=== PATIENT | female | born 1955 | race Caucasian/White ===

== ENCOUNTER 2016-06-26 08:30 | Emergency (ER) | payer OTHER ==
[2016-06-26 08:39] VITALS: BP 133/91; PULSE 64; TEMP 98; BMI 33.7
--- NOTE | 2016-06-26 09:12 | PDOC ---
History of Present Illness - General Chief Complaint: Nasal Bleeding Stated Complaint: NOSE BLEEDS Time Seen by Provider: 06/26/16 08:55 History Source: Patient Exam Limitations: No Limitations - History of Present Illness Initial Comments: 06/26/16 09:16 CHIEF COMPLAINT: Left sided nasal bleeding intermittent 3 months last episode this morning HISTORY OF PRESENT ILLNESS: Patient is a 61-year-old female with a history of left-sided breast cancer with lumpectomy here today complaining of intermittent nasal bleeding left nostril 3 months patient reports he asked episode with this morning. Patient denies being on any blood thinners however does take Aleve every day for arthritis. Patient reports that she does not pinch her nose closed was never told to do this. Patient also reports that she has a very small bedroom and the heat is very high and dry patient has not used any humidification. Patient has an appointment with an ear nose and throat doctor in July. Patient denies any nasal congestion prior to episodes of nasal bleeding or any postnasal drip or cough. Patient reports this is the first unit that she has ever had this before. Timing/Duration: intermittent (for 3 months ) Severity: mild Associated Symptoms: reports: other (left sided epistaxis none presently had eariler today) Past History - Past Medical History Allergies/Adverse Reactions: Allergies Allergy/AdvReac Type Severity Reaction Status Date / Time No Known Allergies Allergy Verified 06/26/16 08:39 Home Medications: Ambulatory Orders NK [No Known Home Medication] 06/26/16 Cancer: Yes (Hx of Breast CA.) Liver Disease: Yes (hep c) Other medical history: arthritis - Psycho/Social/Smoking Cessation Hx Suicidal Ideation: No Smoking History: Never smoked Hx Alcohol Use: No Drug/Substance Use Hx: No Review of Systems - Review of Systems Able to Perform ROS?: Yes Constitutional: No: Symptoms Reported HEENTM: Yes: Other (left sided epistaxis intermittent for 3 months, last time this morning) Respiratory: No: Symptoms reported Cardiac (ROS): No: Symptoms Reported ABD/GI: No: Symptoms Reported Musculoskeletal: No: Symptoms Reported Integumentary: No: Symptoms Reported Neurological: No: Symptoms reported *Physical Exam - Vital Signs Last Vital Signs Temp Pulse Resp BP Pulse Ox 98 F 64 18 133/91 99 06/26/16 08:35 06/26/16 08:35 06/26/16 08:35 06/26/16 08:35 06/26/16 08:35 - Physical Exam General Appearance: Yes: Appropriately Dressed HEENT: positive: TMs Normal, Other (left turbinate superior turbinate edema, no septal hematoma noted. ). negative: Pharyngeal Erythema, Tonsillar Exudate, Tonsillar Erythema, Nasal Congestion, Sinus Tenderness Neck: negative: Lymphadenopathy (R), Lymphadenopathy (L) Respiratory/Chest: positive: Lungs Clear, Normal Breath Sounds. negative: Chest Tender, Respiratory Distress Cardiovascular: positive: Regular Rhythm, Regular Rate, S1, S2 Integumentary: positive: Normal Color Medical Decision Making - Medical Decision Making 06/26/16 09:18 Patient is a 61-year-old female with a history of left-sided breast cancer with lumpectomy here today complaining of intermittent nasal bleeding left nostril 3 months patient reports he asked episode with this morning. Patient denies being on any blood thinners however does take Aleve every day for arthritis. Patient reports that she does not pinch her nose closed was never told to do this. Patient also reports that she has a very small bedroom and the heat is very high and dry patient has not used any humidification. Patient has an appointment with an ear nose and throat doctor in July. Patient denies any nasal congestion prior to episodes of nasal bleeding or any postnasal drip or cough. Patient reports this is the first unit that she has ever had this before. Epistaxis left sided PLAN: follow up with ENT Dr. Belle put humidifter in bedroom saline nasal spray as directed by rate inserter *DC/Admit/Observation/Transfer Diagnosis at time of Disposition: Epistaxis, recurrent Diagnosis at time of Disposition: (Ruled Out): Epistaxis - Discharge Dispostion Disposition: HOME Condition at time of disposition: Stable - Patient Instructions Additional Instructions: Follow-up with ear nose and throat Dr. Belle tell him that she was seen here in emergency room today. Humidifier in your bedroom make sure that you infect this as directed by rate inserter When you have a nosebleed pain should both sides of the bridge of your nose closed do not lean forward or backwards sustaining this position 15 minutes You may purchase saline nasal spray [id number] and use as directed to keep your mucous membranes of your nostrils moist Return to emergency room if symptoms worsen Patient voiced understanding of discharge instructions and all questions were answered
== END 2016-06-26 09:27 | disposition home or self-care (01) ==
LOC: JERFT 08:30
DX: R04.0 Epistaxis (principal); M12.9 Arthropathy, unspecified; N18.2 Chronic kidney disease, stage 2 (mild); Z85.3 Personal history of malignant neoplasm of breast
CPT/HCPCS: 99281-25

== ENCOUNTER 2018-11-03 07:42 | Emergency (ER) | payer OTHER ==
[2018-11-03 08:17] VITALS: BP 103/67; PULSE 62; TEMP 98.3; BMI 37.2
--- NOTE | 2018-11-03 09:03 | PDOC ---
History of Present Illness - General Chief Complaint: Rash Stated Complaint: RASH Time Seen by Provider: 11/03/18 08:22 History Source: Patient Exam Limitations: No Limitations - History of Present Illness Initial Comments: 11/03/18 09:08 Here with complaints of red mildly tender rash started on the lateral aspect of her right lower extremity and is spreading to the other side. Denies swelling to leg, no history of DVT or injury. No recent travel or exercise change. Nose has poor circulation to bilateral feet with peripheral vascular changes but this rash onset was yesterday and is progressively worsening. Denies fever, purulent drainage or ulceration to that same site. Used any creams or topical preps for relief Timing/Duration: reports: yesterday Severity: Yes: mild, moderate Location: reports: extremities Respiratory Risk Factors: reports: no cause identified Associated Symptoms: reports: denies symptoms, rash. denies: blisters, fever, headache, numbness Past History - Travel Traveled outside of the country in the last 30 days: No Close contact w/someone who was outside of country & ill: No - Past Medical History Allergies/Adverse Reactions: Allergies Allergy/AdvReac Type Severity Reaction Status Date / Time No Known Allergies Allergy Verified 11/03/18 08:00 Home Medications: Ambulatory Orders Anastrozole [Arimidex -] 1 mg PO DAILY 11/03/18 Calcium Carbonate/Vitamin D3 [Calcium 500 + Vit D Caplet] 1 each PO DAILY Cephalexin Monohydrate [Keflex -] 500 mg PO Q8H #21 capsule 11/03/18 Methadone HCl 50 gm PO DAILY 11/03/18 Naproxen Sodium [Aleve] 440 mg PO BID 11/03/18 Cancer: Yes (Hx of Breast CA.) COPD: No Liver Disease: Yes (hep c) Other medical history: chronic pain on methadone - Suicide/Smoking/Psychosocial Hx Smoking History: Former smoker Have you smoked in the past 12 months: No Information on smoking cessation initiated: No Hx Alcohol Use: No Drug/Substance Use Hx: No Review of Systems - Review of Systems Able to Perform ROS?: Yes Is the patient limited Ukrainian proficient: Yes Constitutional: Yes: Symptoms Reported, See HPI, Weight Stable. No: Fever, Malaise, Weakness Musculoskeletal: Yes: Symptoms Reported Integumentary: Yes: Symptoms Reported, See HPI, Change in Color, Erythema, Lesions, Pruritus, Rash All Other Systems: Reviewed and Negative *Physical Exam - Vital Signs Last Vital Signs Temp Pulse Resp BP Pulse Ox 98.3 F 62 18 103/67 93 L 11/03/18 08:04 11/03/18 08:04 11/03/18 08:04 11/03/18 08:04 11/03/18 08:04 - Physical Exam General Appearance: Yes: Nourished, Appropriately Dressed, Apparent Distress, Mild Distress HEENT: positive: HOLLI, Normal ENT Inspection, Pharynx Normal, Pale Conjunctivae. negative: TMs Normal Neck: positive: Supple. negative: Tender Respiratory/Chest: positive: Lungs Clear Extremity: positive: Normal Range of Motion, Tender (I lid tender at rash site) , Delayed Capillary Refill. negative: Normal Capillary Refill, Normal Inspection Integumentary: positive: Erythema (nonblanching macular rash noted to the lateral aspect of right calf and some blotchy patterning. Is nonpruritic, no vesicles, no ulcerations and extending in other blotches to the medial aspect which are new lesions. Patient has peripheral vascular disease with severe discoloration and scaling skin inferior to the same site and perform pulses are faint but palpable.), Petechiae. negative: Normal Color Neurologic: positive: spanish instructor II-XII NML intact, Fully Oriented, Alert, Normal Mood/ Affect, Normal Response, Motor Strength 5/5 *DC/Admit/Observation/Transfer Diagnosis at time of Disposition: Vasculitis - Discharge Dispostion Disposition: HOME Condition at time of disposition: Stable Decision to Admit order: No - Prescriptions Prescriptions: Cephalexin Monohydrate [Keflex -] 500 mg PO Q8H #21 capsule - Referrals Referrals: Kofi Patel MD [Primary Care Provider] - - Patient Instructions Printed Discharge Instructions: DI for Vasculitis Additional Instructions: Rest, keep cool and dry- avoid strenuous activity or hot /humid environments Less hot showers, no abrasive soaps May use heavy creams like Eucerin or Cetaphil to keep skin moist May apply Aveeno, calamine lotion, [id number] hydrocortisone creams as needed for symptoms May use Benadryl at night for antihistamine, Zyrtec/ Lacey or Claritin for daytime antihistamine use to help with itching By support stockings to provide extra support for swelling of legs and improve circulation Complete antibiotics Followup with PMD in one week if no resolution Make appointment with buckle and button maker for evaluation when possible - Post Discharge Activity
[2018-11-03] MEDS ORDERED: CEPHALEXIN MONOHYDRATE 500 MG CAPSULE (UD) PO ONE (09:06)
== END 2018-11-03 09:18 | disposition home or self-care (01) ==
LOC: JERFT 07:42
DX: I77.6 Arteritis, unspecified (principal); B18.2 Chronic viral hepatitis C; G89.29 Other chronic pain; F11.20 Opioid dependence, uncomplicated; Z85.3 Personal history of malignant neoplasm of breast
CPT/HCPCS: 99281-25

== ENCOUNTER 2020-06-13 09:59 | Emergency (ER) | payer OTHER ==
[2020-06-13 10:15] VITALS: BP 148/78; PULSE 79; TEMP 98.2; BMI 39.4
== END 2020-06-13 11:01 | disposition home or self-care (01) ==
LOC: JERFT 09:59
DX: H00.012 Hordeolum externum right lower eyelid (principal)
CPT/HCPCS: 99283-25

== ENCOUNTER 2023-04-04 15:04 | Emergency (ER) | payer OTHER ==
[2023-04-04 15:20] VITALS: BP 136/56; PULSE 66; RESP 17; TEMP 98; BMI 36.3
== END 2023-04-04 17:24 | disposition home or self-care (01) ==
LOC: JER 15:04
DX: R21 Rash and other nonspecific skin eruption (principal); L29.9 Pruritus, unspecified; B02.9 Zoster without complications
CPT/HCPCS: 99283-25